=== PATIENT | male | born 1995 | race Caucasian/White ===

== ENCOUNTER 2020-08-31 15:24 | Emergency (ER) | payer BC, SELFPAY ==
[2020-08-31 15:25] VITALS: BP 164/78; PULSE 77; RESP 16; TEMP 36.3; O2SAT 98; BMI 32.1
--- NOTE | 2020-08-31 15:41 | EDS_ITS ---
HPI History of Present Illness Chief Complaint: Laceration Narrative Narrative: Patient presenting for evaluation secondary to a left forearm laceration. Patient states that he was opening a box for his daughter's birthday with a knife and suffered a laceration over the volar portion of his left forearm. He reports that his tetanus status is up-to-date. Bleeding was controlled with pressure. Patient denies any history of immunosuppression, easy bruising or bleeding or anticoagulant use. Review of systems otherwise negative. PFSH PFSH Allergy/AdvReac Type Severity Reaction Status Date / Time No Known Allergies Allergy Verified 08/31/20 15:25 ROS [facility] ED Cardiovascular Cardiovascular: Denies chest pain Respiratory/Chest Respiratory/Chest: Denies cough Gastrointestinal Gastrointestinal: Denies vomiting Integumentary Reports other Details: Forearm laceration Neurologic Neurologic: Denies paresthesias or weakness Hematologic/Lymphatic Hematologic/Lymphatic: Denies easy bleeding or easy bruising EXAM Physical Exam Const Vital Signs: 08/31/20 15:25 Temperature 97.4 F L Temperature Source Temporal Pulse Rate 77 Respiratory Rate 16 Blood Pressure 164/78 H Blood Pressure Mean 106 Pulse Ox 98 Oxygen Delivery Method Room Air Positive well nourished and well developed General Appearance ED: well developed and NAD HEENT normocephalic and atraumatic Eyes EOMs intact bilaterally Neck full ROM Resp normal respiratory effort Cardio regular rate, regular rhythm and no murmurs Cardio Narrative: 2+ radial pulses bilaterally symmetric Extremity Extremity Narrative: Examination of the patient's left forearm shows a large laceration over the volar surface of the forearm. There is subcutaneous fat exposed. It measures may be 9 cm in total length. Normal flexion and extension at the wrist, normal range of motion of the fingers, normal sensation over all dermatomes normal testing of the radial median and ulnar nerve distributions normal pulses normal capillary refill. Neuro oriented x3 Sensorium / Orientation: alert Psych mental status grossly normal Skin Skin Narrative: Laceration as noted MDM MDM MDM Narrative Medical decision making narrative: Patient presented secondary to perform laceration. Wound was addressed as noted in the procedure note with good closure. No evidence of violation to deep structures. Patient's tetanus status is already up-to-date per his history. Patient was discharged improved condition. Procedures Lacerations Forearm laceration: Length: 10 ft Depth: Sub Q Shape: Linear Prep: Sterile Conditions Laceration repair: Irrigated, Lidocaine with epi, Skin sutures and Subcutaneous sutures Irrigated (ml): 500 Comment: Wound was anesthetized with a total of 10 cc of 1% lidocaine with epinephrine. Bleeding was controlled with this epinephrine. The wound was fully explored through range of motion, there is no evidence of violation of deep structures I was not able to identify any sort of foreign material. Wound was then addressed for suture repair. #2 3-0 rapid Vicryl were utilized to approximate the subcutaneous tissue. Number ten 4-0 nylon suture was placed in a running fashion to approximate the skin. Patient tolerated this well. Discharge Plan Triage Chief Complaint: Laceration ED Provider: Timothy Omalley Dx/Rx/DC Orders Clinical Impression: Laceration of forearm, left Instructions: ED Laceration: All Closures Primary Care Provider: NOT,DEFINED Referrals: Whitley Reyes [NON-STAFF] - 10-14 Days suture removal NOT,DEFINED [Primary Care Provider] - Activity Restrictions/Additional Instructions: Follow-up with your primary care physician in 10 to 14 days for suture removal. Disposition Disposition: Home, self care
[2020-08-31] MEDS: Lidocaine 1% /Epi 1:100 (20ml) 20 ML Vial INFILT (16:38)
== END 2020-08-31 17:05 | disposition home or self-care (01) ==
LOC: ED 16:31
PROVIDERS: Emergency Provider Emergency Medicine
DX: S51.812A Laceration without foreign body of left forearm, initial encounter (principal); W26.0XXA Contact with knife, initial encounter
CPT/HCPCS: 12004; 99285

== ENCOUNTER 2021-05-27 09:50 | Emergency (ER) | payer BC, SELFPAY ==
[2021-05-27 09:52] VITALS: BP 173/99; PULSE 88; RESP 17; TEMP 36.8; O2SAT 95; BMI 34.7
--- NOTE | 2021-05-27 10:09 | EKG12_ITS ---
Test Reason : CP Blood Pressure : / mmHG Vent. Rate : 086 BPM Atrial Rate : 086 BPM P-R Int : 134 ms QRS Dur : 090 ms QT Int : 346 ms P-R-T Axes : 030 072 034 degrees QTc Int : 414 ms Normal sinus rhythm with sinus arrhythmia Normal ECG Confirmed by HECTOR MONTES DE OCA, JUSTINE ([id number]), newspaper or periodical editor LORENA DIAMOND ([id number]) on 05/28/2021 10:11:53 AM Referred By: DP Confirmed By:JUSTINE YOUNG MD
--- NOTE | 2021-05-27 10:09 | RAD_ITS ---
STUDY: X-RAY CHEST REASON FOR EXAM: Male, 25 years old. SOB TECHNIQUE: PA and lateral views of the chest. COMPARISON: None. FINDINGS: The lungs are clear and expanded. There is no demonstrated pleural abnormality. Normal size heart. Normal mediastinum and james. Normal visualized pulmonary arteries. Normal visualized aortic arch and descending thoracic aorta. Normal visualized thoracic spine. Normal visualized ribs, clavicles, and shoulders. There is no demonstrated abnormality of the visualized soft tissue structures of the upper abdomen. RAD/Chest PA and Lateral IMPRESSION: Normal x-ray examination of the chest. Electronically Signed: Cuong Bermudez MD at 10:59 EST ,
--- NOTE | 2021-05-27 10:11 | EX.ED.DYSGE1 ---
HPI History of Present Illness Chief Complaint: Chest Pain Informant: patient Narrative Narrative: Patient presents with a sensation that he cannot quite take a deep breath all the time. This is intermittent. But it has been going on for 3 days. He is not generally short of breath he just feels he needs to take a deeper breath. I asked about chest pain. He states there is a small area in the left side of his chest that is a little sore but that is minor. That somewhat he came in nor would he of come in for this. Nothing really makes any of his symptoms better or worse. He states it is just annoying. He has not had it before. He is a smoker. He has a history of high blood pressure but has not been on any meds. No history of diabetes cholesterol or heart disease in the family. He has had no recent travel surgery immobilization personal or family history of DVT or PE. Patient does work around boron carbide and aluminum dust. He does not think he is inhaled any of this or any other chemicals that he knows of. However, these compounds are mixed together and then placed in a press that presses them firm enough to force them into a solid millable structure. He does not know if there is any change in the materials. Patient does not report hearing wheezing. PFSH PFS Home Medications amlodipine 5 mg PO DAILY #30 tab 05/27/21 [Rx Last Taken Unknown] Allergy/AdvReac Type Severity Reaction Status Date / Time No Known Allergies Allergy Verified 05/27/21 09:51 Social History Smoking Status: Current every day smoker tobacco type: cigarettes ROS ROS ED Constitutional Constitutional ED: Denies chills, fever(s), subjective or sweats ENT ENT ED: Denies ear pain, rhinorrhea or sore throat Cardiovascular Cardiovascular: Reports chest pain; Denies orthopnea, palpitations, paroxysmal nocturnal dyspnea or racing heartbeat Respiratory/Chest Respiratory/Chest: Reports dyspnea and other Details: See history of present illness for details explaining. ; Denies cough, dyspnea on exertion, orthopnea, paroxysmal nocturnal dyspnea or sputum Gastrointestinal Gastrointestinal: Denies nausea or vomiting Musculoskeletal Musculoskeletal: Denies arthralgias or myalgias Integumentary Denies rash Neurologic Neurologic: Denies headache(s) Psychiatric Psychiatric: Denies anxiety or depression Endocrine Endocrinology: Denies polydipsia or polyuria Allergic/Immunologic Allergic/Immunologic ED: Denies mouth swelling, tongue swelling or urticaria EXAM Physical Exam Const Vital Signs: 05/27/21 09:52 05/27/21 10:17 05/27/21 10:18 Temperature 98.2 F Temperature Source Oral Pulse Rate 88 75 Respiratory Rate 17 17 Respiratory Effort Normal Non-Labored Respiratory Pattern Normal Blood Pressure 173/99 H Blood Pressure Mean 123 Pulse Ox 95 99 Oxygen Delivery Method Room Air Room Air Positive well nourished and well developed Constitutional Narrative: Patient looks comfortable. Breathing is easy and unlabored. General Appearance ED: well developed and NAD; Negative for cyanotic or diaphoretic HEENT Reports moist mucous membranes Negative for trauma Eyes General Eye ED: Negative for pale conjunctiva or scleral icterus Neck no JVD Chest Wall inspection of chest normal Chest Narrative: There is very mild tenderness in a small area of the left chest. But there is no skin changes mass or erythema. Resp normal respiratory effort and clear to auscultation bilaterally Resp Narrative: Lungs sound good. He might have a slightly prolonged expiration but no actual wheeze. No pain when he takes a full deep breath. Effort and Inspection: Negative for pain with movement Auscultation: Negative for rales, rhonchi or wheezes Cardio regular rate, regular rhythm and no murmurs GI normal to inspection, nondistended, normoactive bowel sounds and non-tender Back/Spine no CVA tenderness Extremity normal to inspection Extremity Narrative: No edema, cords, asymmetry, distended veins or tenderness along the deep venous system. General Extremety ED: Negative for edema or tenderness General Extremity: Negative for edema Neuro Sensorium / Orientation: alert Psych mental status grossly normal Skin no rashes or lesions noted MDM MDM MDM Narrative Medical decision making narrative: Patient had just minimal improvement with the aerosol. His CBC was normal. Electrolytes were overall normal. Troponin was negative despite several days of symptoms. X-ray of his chest was normal. Patient is PERC negative. He has no pleuritic pain, tachycardia, tachypnea or hypoxia. However, I do note that his blood pressure is high here. He states he has a history of high blood pressure but has never followed up for treatment. Considering this history and his current symptoms I think it is worth getting him started on low-dose meds and have encouraged him to follow-up. Social work is actually given him some resources also for follow-up. Lab Data Attestation: I reviewed the patient's lab results. Labs: Laboratory Results - last 24 hr 05/27/21 05/27/21 10:07 10:07 WBC 9.4 RBC 4.79 Hgb 15.5 Hct 44.1 MCV 92.1 MCH 32.4 H MCHC 35.1 RDW Std Deviation 39.7 RDW Coeff of Lesa 11.7 Plt Count 143 L MPV 11.5 Immature Gran % (Auto) 0.600 Neut % (Auto) 64.2 Lymph % (Auto) 23.7 [place] % (Auto) 8.9 Eos % (Auto) 2.2 Baso % (Auto) 0.4 Absolute Neuts (auto) 6.0 Absolute Lymphs (auto) 2.23 Nucleated RBC % 0 Sodium 137 Potassium 4.2 Chloride 103 Carbon Dioxide 27.0 Anion Gap 7 BUN 18 Creatinine 1.19 Estim Creat Clear Calc 105.06 Est GFR (MDRD) Af Amer 96 Est GFR (MDRD) Non-Af 80 BUN/Creatinine Ratio 15.1 Glucose 96 Calcium 9.3 Troponin I High Sens 6 Radiography Diagnostic Testing: Clinical Impression(s) from Imaging Studies Chest X-Ray 05/27/21 10:09 IMPRESSION: Normal x-ray examination of the chest. Electronically Signed: Cuong Bermudez MD at 10:59 EST , EKG Initial EKG: Comments: EKG done for dyspnea read by me is normal sinus rhythm with overall rate of 86. Slight sinus arrhythmia. No ectopy. No acute ST elevation or depression. WA interval, QRS duration and QTc are normal. Discharge Plan Triage Chief Complaint: Chest Pain ED Provider: Jonathan Mercado Dx/Rx/DC Orders Clinical Impression: Dyspnea, Chest pain, Elevated blood pressure reading Instructions: Hypertension Dc, ED Chest Pain, Uncertain Cause Prescriptions: New amlodipine 5 mg tablet 5 mg PO DAILY Qty: 30 RF: 0 Primary Care Provider: Care Physician,No Primary Referrals: Yesi Doan MD [STAFF PHYSICIAN] - 3-5 Days Care Physician,No Primary [Primary Care Provider] - Disposition Disposition: Home, Self Care
--- NOTE | 2021-05-27 10:14 | NURSING ---
NO OLD EKGS
[2021-05-27] MEDS: Ipratropium/Albuterol Sulfate 3 ML AMPUL.NEB INHALATION (10:16)
[2021-05-27 10:18] VITALS: PULSE 75; RESP 17; O2SAT 99
[2021-05-27 10:20] LABS: Absolute Lymphocyte Count 2.23 X10^3/uL (0.83-4.51); Basophil# 0.04 X10^3/uL; Basophil% 0.4 % (0-1); Eosinophil# 0.21 X10^3/uL; Eosinophils% 2.2 % (0-5); Hematocrit 44.1 % (40-54); Hemoglobin 15.5 g/dL (13.0-16.5); Lymphocyte # 2.23 X10^3/ul (0.83-4.51); Lymphocyte % 23.7 % (19-41); Mean Corp Hgb Conc 35.1 g/dL (32-36); Mean Corpuscular Hgb 32.4 pg (27.0-32.0); Mean Corpuscular Volume 92.1 fL (80-94); Mean Platelet Vol. 11.5 fl (6.2-12.0); Monocyte# 0.84 X10^3/uL; Monocyte% 8.9 % (0-10); NRBC Flagged by Analyzer 0 % (0-5); Neutrophil # 6.04 X10^3/uL (2.7-7.7); Neutrophil % 64.2 % (47-70); Platelet Count 143 K/mm3 (150-450); RBC Distribution Width CV 11.7 % (11.6-14.6); RBC Distribution Width SD 39.7 fl (35.1-43.9); Red Blood Count 4.79 M/mm3 (4.6-6.2); White Blood Count 9.4 K/mm3 (4.4-11.0)
[2021-05-27 10:36] LABS: Anion Gap 7 (5-15); BUN 18 mg/dL (7-18); BUN/Creat Ratio 15.1 RATIO (10-20); Calcium,Total 9.3 mg/dL (8.5-10.1); Chloride 103 mmol/L (98-107); Creatinine, Serum 1.19 mg/dL (0.70-1.30); EST Glomerular Filtration Rate 80 mL/min (>60); Est Glom Filt Rate - Afr Amer 96 mL/min (>60); Estimated Creatinine Clearance 105.06 ml/min; Glucose 96 mg/dL (74-106); Potassium 4.2 mmol/L (3.5-5.1); Sodium Level 137 mmol/L (136-145); Troponin-I HS 6 pg/mL (3.0-78.0)
--- NOTE | 2021-05-27 11:21 | CM.ED ---
Social Work Consult: No Primary Care Physician (PCP) Referral source: Self Referral Met with patient in room. Introduced self and bilingual social worker role. Patient agreeable to speak with this bilingual social worker. Patient confirms to not have a PCP. This bilingual social worker educating patient on importance of having a PCP, patient voiced understanding. Patient open to this bilingual social worker providing patient with list of PCP's that are local to patient geographical region and in-network with patient insurance. Patient denies any other concerns in the community. No further services requested or indicated. Roberth Almonte MSW, ROBYNS
== END 2021-05-27 11:51 | disposition home or self-care (01) ==
PROVIDERS: Emergency Provider Emergency Medicine; Visit Provider Emergency Medicine
DX: R07.9 Chest pain, unspecified (principal); R03.0 Elevated blood-pressure reading, without diagnosis of hypertension; F17.210 Nicotine dependence, cigarettes, uncomplicated; R06.00 Dyspnea, unspecified
CPT/HCPCS: 71046; 80048; 84484; 85025; 93005; 94640; 99284; A4216

== ENCOUNTER 2021-09-30 10:41 | Emergency (ER) | payer BC, SELFPAY ==
[2021-09-30 10:43] VITALS: BP 161/107; PULSE 113; RESP 16; TEMP 36.6; O2SAT 98; BMI 32.5
--- NOTE | 2021-09-30 10:58 | RAD_ITS ---
STUDY: X-RAY CHEST REASON FOR EXAM: Male, 25 years old. Hypertension. TECHNIQUE: Single AP portable view of the chest. COMPARISON: Comparison is made with prior study of 05/27/2021. FINDINGS: EKG electrodes are seen. Stable elevation of the right hemidiaphragm. The lungs are clear. There is no demonstrated pleural abnormality. Normal size heart. Normal mediastinum and james. Normal visualized pulmonary arteries. Normal visualized aortic arch and descending thoracic aorta. Normal visualized thoracic spine. Normal visualized ribs, clavicles, and shoulders. There is no demonstrated abnormality of the visualized soft tissue structures of the upper abdomen. RAD/Chest 1 View (Portable) IMPRESSION: Normal x-ray examination of the chest. Electronically Signed: Cuong Bermudez MD at 11:46 EDT ,
--- NOTE | 2021-09-30 10:58 | CT_ITS ---
STUDY: CT BRAIN WITHOUT CONTRAST REASON FOR EXAM: Male, 25 years old. Htn, vision changes RADIATION DOSAGE (If Supplied By Facility): CTDIvol = ( 44.99 ) mGy, DLP = ( 846.73 ) mGycm TECHNIQUE: Transaxial CT imaging of the brain was performed without administration of intravenous contrast material. Individualized dose optimization techniques were used for this CT. COMPARISON: No relevant priors. FINDINGS: Normal soft tissue structures. Normal calvarium. Normal size ventricles and extra-axial spaces for the patient''s age. Normal white matter tracts of the cerebral hemispheres. Normal basal ganglia and thalami. Normal brainstem. Normal cerebellum. There is no intracranial hemorrhage. There are no findings of an acute ischemic infarction. Follow-up or mucosal retention cyst at the base of the left maxillary sinus. CT/Brain/Head without Contrast IMPRESSION: Normal unenhanced CT scan of the brain. Electronically Signed: Cuong Bermudez MD at 11:45 EDT ,
--- NOTE | 2021-09-30 10:58 | EKG12_ITS ---
Test Reason : HYPERTENSION Blood Pressure : / mmHG Vent. Rate : 109 BPM Atrial Rate : 109 BPM P-R Int : 136 ms QRS Dur : 084 ms QT Int : 326 ms P-R-T Axes : 024 055 027 degrees QTc Int : 439 ms Sinus tachycardia Otherwise normal ECG Confirmed by JENNIFER MONTES DE OCA, HENRY ([id number]), fan mail editor LORENA DIAMOND ([id number]) on 10/01/2021 9:23:56 AM Referred By: DEVORAH Confirmed By:HNERY RODRIGUEZ MD
--- NOTE | 2021-09-30 10:59 | EDS_ITS ---
HPI History of Present Illness Chief Complaint: Hypertension Informant: patient Narrative Narrative: Patient presents due to concerns for hypertension. He does admit to having high blood pressure over the past couple years but states this time to get something done about it. He does not have a primary care physician. When he was seen here in May she was given a prescription option for amlodipine which he states he never filled. He states yesterday he had some spots in his vision. He had his blood pressure checked at work and it was in the 180s systolic. [facility] Medical History (Updated 09/30/21 @ 12:[address] Thalia Adams MD) Hypertension Home Medications amlodipine 5 mg tablet 5 mg PO DAILY #30 tabs 09/30/21 [Rx Last Taken Unknown] Allergy/AdvReac Type Severity Reaction Status Date / Time No Known Allergies Allergy Verified 09/30/21 10:42 Social History Smoking Status: Current every day smoker tobacco type: cigarettes ROS ROS ED Constitutional Constitutional ED: Denies chills or fever(s) Eyes Eyes: Reports change in vision; Denies discharge from eye(s) ENT ENT ED: Denies discharge from eye(s), rhinorrhea or sore throat Cardiovascular Cardiovascular: Denies chest pain or palpitations Respiratory/Chest Respiratory/Chest: Denies cough or dyspnea Gastrointestinal Gastrointestinal: Denies abdominal pain, diarrhea, nausea or vomiting Genitourinary Genitourinary ED: Denies dysuria Musculoskeletal Musculoskeletal: Denies back pain or extremity pain Integumentary Denies Abrasions or rash Neurologic Neurologic: Denies headache(s), paresthesias or weakness Psychiatric Psychiatric: Denies anxiety or depression Endocrine Endocrinology: Denies polydipsia or polyuria Allergic/Immunologic Allergic/Immunologic ED: Denies lip swelling or urticaria EXAM Physical Exam Const Vital Signs: 09/30/21 10:43 09/30/21 11:12 Temperature 97.8 F Temperature Source Temporal Pulse Rate 113 H Respiratory Rate 16 Respiratory Effort Normal Non-Labored Respiratory Pattern Normal Blood Pressure 161/107 H Blood Pressure Mean 125 Pulse Ox 98 Oxygen Delivery Method Room Air Positive well nourished and well developed General Appearance ED: well developed HEENT Reports normocephalic and head/scalp atraumatic Eyes PERRL and EOMs intact bilaterally Neck supple Chest Wall inspection of chest normal and palpation of chest normal Resp normal respiratory effort and clear to auscultation bilaterally Cardio regular rate and regular rhythm GI normal to inspection, nondistended, normoactive bowel sounds Palpation: soft Back/Spine no CVA tenderness Extremity normal to inspection Neuro oriented x3 and no sensory deficits noted Sensorium / Orientation: alert Motor Exam: strength 5/5 throughout Psych mental status grossly normal Skin no rashes or lesions noted MDM MDM MDM Narrative Medical decision making narrative: At the time of my exam patient's blood pressure is 157/99. EKG, chest x-ray, head CT, lab work obtained. Lab Data Attestation: I reviewed the patient's lab results. Labs: Laboratory Results - last 24 hr 09/30/21 09/30/21 09/30/21 11:09 11:09 11:40 WBC 11.0 RBC 4.52 L Hgb 15.1 Hct 41.9 MCV 92.7 MCH 33.4 H MCHC 36.0 RDW Std Deviation 40.9 RDW Coeff of Lesa 11.9 Plt Count 148 L MPV 11.2 Immature Gran % (Auto) 0.900 Neut % (Auto) 69.5 Lymph % (Auto) 18.6 L Norton % (Auto) 8.7 Eos % (Auto) 1.8 Baso % (Auto) 0.5 Absolute Neuts (auto) 7.7 Absolute Lymphs (auto) 2.05 Nucleated RBC % 0 Sodium 140 Potassium 4.0 Chloride 108 H Carbon Dioxide 27.0 Anion Gap 5 BUN 13 Creatinine 1.28 Estim Creat Clear Calc 97.67 Est GFR (MDRD) Af Amer 88 Est GFR (MDRD) Non-Af 73 BUN/Creatinine Ratio 10.2 Glucose 109 H Calcium 9.4 Urine Color Yellow Urine Clarity Clear Urine pH 5.0 Ur Specific Foley 1.025 Urine Protein Negative Urine Glucose (UA) Normal Urine Ketones Negative Urine Occult Blood Negative Urine Nitrite Negative Urine Bilirubin Negative Urine Urobilinogen Normal Ur Leukocyte Esterase Negative Urine RBC 0 SEEN Urine WBC 0 SEEN Ur Squamous Epith Cells 0 SEEN Urine Bacteria 0 SEEN Urine Mucus 0 SEEN Radiography Chest X-Ray - ED: 1 View, Read by ED Physician, Normal, Heart, Lungs and Mediastinum Diagnostic Testing: Clinical Impression(s) from Imaging Studies Brain CT 09/30/21 10:58 IMPRESSION: Normal unenhanced CT scan of the brain. Electronically Signed: Cuong Bermudez MD at 11:45 EDT , Chest X-Ray 09/30/21 10:58 IMPRESSION: Normal x-ray examination of the chest. Electronically Signed: Cuong Bermudez MD at 11:46 EDT , EKG Initial EKG: Attestation: I personally reviewed and interpreted this EKG as follows: Interpretation: Sinus Tachycardia (Sinus tach at 109 with no acute ischemia.) Treatment and Re-Evaluation Narrative: Repeat evaluation systolic blood pressure is 157. It was taking a new blood pressure as I walked into the room. Patient's lab results are discussed with him and are unremarkable. Chest x-ray per my interpretation reveals no acute findings. Head CT is normal. Social work did speak with the patient as far as helping to establish primary care. He was referred to Dr. Parks on his last visit and this information will be provided for the patient again. I did discuss again the importance of follow-up. He will be given a new prescription for amlodipine which she was prescribed previously and did not feel. Discharge Plan Triage Chief Complaint: Hypertension ED Provider: Thalia Adams Dx/Rx/DC Orders Clinical Impression: Hypertension Instructions: ED Hypertension, To Be Confirmed Prescriptions: New amlodipine 5 mg tablet 5 mg PO DAILY Qty: 30 0RF Primary Care Provider: Care Physician,No Primary Referrals: Yesi Doan MD [STAFF PHYSICIAN] - As soon as possible Care Physician,No Primary [Primary Care Provider] - Disposition Disposition: Home, Self Care
[2021-09-30 11:18] LABS: Absolute Lymphocyte Count 2.05 X10^3/uL (0.83-4.51); Absolute Neutrophil Count 7.7 X10^3/uL (2.0-7.7); Basophil# 0.05 X10^3/uL; Basophil% 0.5 % (0-1); Eosinophils% 1.8 % (0-5); Hematocrit 41.9 % (40-54); Hemoglobin 15.1 g/dL (13.0-16.5); Lymphocyte # 2.05 X10^3/ul (0.83-4.51); Lymphocyte % 18.6 % (19-41); Mean Corpuscular Hgb 33.4 pg (27.0-32.0); Mean Corpuscular Volume 92.7 fL (80-94); Mean Platelet Vol. 11.2 fl (6.2-12.0); Monocyte# 0.96 X10^3/uL; Monocyte% 8.7 % (0-10); NRBC Flagged by Analyzer 0 % (0-5); Neutrophil # 7.65 X10^3/uL (2.7-7.7); Neutrophil % 69.5 % (47-70); Platelet Count 148 K/mm3 (150-450); RBC Distribution Width CV 11.9 % (11.6-14.6); RBC Distribution Width SD 40.9 fl (35.1-43.9); Red Blood Count 4.52 M/mm3 (4.6-6.2)
[2021-09-30 11:25] LABS: Anion Gap 5 (5-15); BUN 13 mg/dL (7-18); BUN/Creat Ratio 10.2 RATIO (10-20); Calcium,Total 9.4 mg/dL (8.5-10.1); Chloride 108 mmol/L (98-107); Creatinine, Serum 1.28 mg/dL (0.70-1.30); EST Glomerular Filtration Rate 73 mL/min (>60); Est Glom Filt Rate - Afr Amer 88 mL/min (>60); Estimated Creatinine Clearance 97.67 ml/min; Glucose 109 mg/dL (74-106); Sodium Level 140 mmol/L (136-145)
[2021-09-30 11:44] LABS: Bacteria 0 SEEN /hpf (None Seen); Mucous, Urine 0 SEEN /hpf (<or=2+); Red Blood Cells-Urine 0 SEEN /hpf (0-5); Squamous Epithelial Cells - UA 0 SEEN /hpf (0-5); White Blood Cells 0 SEEN /hpf (0-5)
[2021-09-30 11:48] LABS: Color, Urine Yellow (Yellow); Glucose, Dipstick Normal (Normal); Ketone-Dipstick Negative (Negative); Leukocyte Esterase-Dipstick Negative /ul (Negative); Nitrite-Dipstick Negative (Negative); Occult Blood-Urine Negative /ul (Negative); Protein-Dipstick Negative (Negative); Specific Gravity, Urine 1.025 (1.002-1.030); Urine Bilirubin Dipstick Negative (Negative); Urine Clarity Clear (Clear); Urine Urobilinogen Normal (Normal)
[2021-09-30 12:01] VITALS: BP 158/98; PULSE 102; RESP 20; O2SAT 97
--- NOTE | 2021-09-30 12:03 | CM.ED ---
SW Note Referral Source: MD Referral Reason: NO PCP SW met with patient as he has no PCP. Patient said that he wants PCP in [place]. SW provided patient with list of PCP and Where to Go When. SW offered to assist with calling PCP however, patient verbalized he could do it. No other SW needs voiced. SW again voiced that patient needs a PCP. Marguerite DE JESUS
[2021-09-30] MEDS: amLODIPine 5 MG Tablet PO (12:08)
== END 2021-09-30 12:13 | disposition home or self-care (01) ==
PROVIDERS: Emergency Provider Emergency Medicine; Visit Provider Emergency Medicine
DX: I10 Essential (primary) hypertension (principal); F17.210 Nicotine dependence, cigarettes, uncomplicated; Z79.899 Other long term (current) drug therapy
CPT/HCPCS: 70450; 71045; 80048; 81001; 85025; 93005; 99285; A4216